=== PATIENT | male | born 1965 | race American Indian/Alaskan Native ===

== ENCOUNTER 2019-05-05 08:44 | Outpatient (CLI) | payer BC ==
--- NOTE | 2019-05-05 09:32 | XRay Report ---
Left ankle 4 views [id number] INDICATION: Ankle pain on walking for several days, worsening, no obvious history of trauma Mild lateral soft tissue swelling is seen. Mild posterior and moderate inferior calcaneal spurring ar e noted. Mild ankle degenerative changes are seen. No fractures or dislocations are noted. Signer Name: Juventino Stevens MD Signed: 05/05/2019 9:27 AM Workstation Name: [id number]
== END 2019-05-05 08:45 | disposition home or self-care (01) ==
LOC: SPVIMAG 08:44
PROVIDERS: ATTEND Internal Medicine
DX: M19.072 Primary osteoarthritis, left ankle and foot (principal)